=== PATIENT | male | born 1970 | race Caucasian/White ===

== ENCOUNTER 2020-12-14 06:55 | Emergency (ER) | payer OTHER ==
[2020-12-14 07:24] LABS: HEMOGLOBIN 16.6 gm/dl (14.0-17.5); RED BLOOD COUNT 5.4 M/UL (4.20-5.50); WHITE BLOOD COUNT 13.3 K/UL (4.5-11.0)
[2020-12-14] MEDS ORDERED: HYDROCODON-ACE1 EAC4 PO ×2 (08:49→09:39)
[2020-12-14] MEDS ORDERED: FLOMAX 0.4 MG0.4 MG PO (08:51)
== END 2020-12-14 10:00 | disposition home or self-care (01) ==
LOC: ER1 06:55
PROVIDERS: Emergency Medicine
DX: N13.2 Hydronephrosis with renal and ureteral calculous obstruction (principal)
CPT/HCPCS: 80053; 81001; 83690; 85025; 96374; 96375; 99284; J1170; J1885; J2270; J2405